=== PATIENT | male | born 1940 | race Caucasian/White ===

== ENCOUNTER → 2017-01-29 | Outpatient (CLI) | payer OTHER, MEDICARE ==
[~2017-01-29] MED LIST: ACETAMINOPHEN PO; ASPIRIN81 M2 PO; ASPIRIN81 MG PO; AZITHROMYCIN250 MG PO; CLOPIDOGREL75 MG PO; CORDARONE200 M1 PO; DIGOX0.125 MG PO; EFFEXOR75 M1 PO; FINASTERIDE5 MG PO; FLOMAX0.4 M1 PO; HYTRIN PO; IPRATROPIUM BR2.5 ML INH; LASIX20 MG PO; LEVAQUIN PO; LOSARTAN POTASS50 MG PO; METOPROLOL SUCC25 MG PO; METOPROLOL TAR25 MG PO; METRONIDAZOLE PO; NITROGLYCERIN0.4 MG SL; PANTOPRAZOLE SO40 MG PO; PLAVIX PO; PRAVASTATIN SOD20 MG PO; PREDNISONE PO; PROTONIX PO; PROTONIX40 MG/BLIS PO; SPIRIVA18 MCG INH; SYMBICORT INH; TOPROL XL PO; VENLAFAXINE HCL75 M2 PO; WELLBUTRIN PO; XARELTO20 MG PO; XOPENEX CO1.25 MG/0. IH; ZESTRIL2.5 MG PO; ZOLOFT PO
[2017-01-29 13:01] LABS: BLOOD UREA NITROGEN 25 mg/dL (9-23); CREATININE SERUM 1.2 mg/dL (0.6-1.4); GLOM FILT RATE Estimated ABOVE60 mL/min (>60)
== END | disposition home or self-care (01) ==
LOC: CLAB 12:16
PROVIDERS: Nurse Practitioner
DX: I71.4 Abdominal aortic aneurysm, without rupture (principal); Z98.890 Other specified postprocedural states
CPT/HCPCS: 36415; 82565; 84520

== ENCOUNTER → 2017-02-05 | Outpatient (CLI) | payer OTHER, MEDICARE ==
--- NOTE | ~2017-02-05 | CT14 ---
[facility] A Service of [facility] & [facility] RADIOLOGY TEXT RESULTS PATIENT: BERNARDINO ANDERS LOCATION: [facility] : 39 UNIT #: [id number] AGE: [address]: NIDIA ADAM APRN SEX: M ORDER DR: [id number] [facility] [address] [place], [place] [address] [id number] O MR#: [id number] [facility] #: [id number] NAME: BERNARDINO ANDERS : 1940 SEX: M STUDY DATE/TIME: 02/05/2017 10:54 UNIT: [facility] ROOM: STUDY DESCRIPTION: CT Angio Abdomen and Pelvis Attending Physician: Nidia Adam Aprn Referring Physician: Nidia Adam Aprn Ordering Physician: Nidia Adam Aprn Primary Care Physician: Anum Castro Aprn MEDICAL IMAGING REPORT This report is preliminary unless electronic signature is present EXAM CT angiogram of the abdomen and pelvis with and without contrast. INDICATION 76-year-old male with a history of aortic aneurysm, prior EVAR, followup. TECHNIQUE CT angiogram of the abdomen and pelvis was performed before and after the administration of IV contrast using a multiphase stent graft protocol. Coronal, sagittal, and 3-D reformatted images were obtained. This CT exam was performed with one or more of the following radiation dose reduction techniques: automatic exposure control, adjustment of mA and/or kV according to patient size, and iterative reconstruction. COMPARISON STUDIES Comparison with 07/29/2016. FINDINGS CT ANGIOGRAM: Prior EVAR. Stent graft widely patent. Stable very tiny endoleaks in the upper portion of the aneurysm sac. Aneurysm sac size has slightly decreased measuring about 3.3 x 4.6 cm in greatest dimension. Previously, it was about 3.4 x 5.0 cm. Stable appearance of the visceral arteries. ABDOMEN: Severe emphysema in the lung bases. There is some new nonspecific subcentimeter nodular densities in the anterior portion of the right lung base. Small hiatal hernia. Liver, gallbladder, and spleen unremarkable. Small cysts in the right kidney. The left kidney is unremarkable. The adrenal glands and pancreas are unremarkable. PELVIS: Extensive sigmoid diverticulosis. There is also diverticulosis throughout the rest of the colon but to a lesser extent. The appendix is STS. [facility] A Service of [facility] RADIOLOGY TEXT RESULTS PATIENT: BERNARDINO ANDERS LOCATION: [facility] : 39 UNIT #: [id number] AGE: [address]: NIDIA ADAM, [place] SEX: M ORDER DR: normal. Prostatomegaly. The bone windows are unremarkable. IMPRESSION 1. Stable tiny type 2 endoleaks in the upper portion of the aneurysm sac. 2. Overall the aneurysm sac size has slightly decreased. 3. Severe emphysema. 4. Scattered subcentimeter nodular densities in the anterior right lung base are new compared with the most recent study. These are nonspecific, however, given the patient's emphysema, these require followup. Follow up chest CT in 3 months is recommended to document stability or resolution. Dictated by... Javier Munoz M.D. THIS IS AN ELECTRONICALLY VERIFIED REPORT Javier Munoz M.D. at 02/05/2017 4:29 PM LETICIA/mary carmen TD: 02/05/2017 13:50 JOB #: [id number] MEDICAL IMAGING REPORT Page 1 of 1 COPY
== END | disposition home or self-care (01) ==
LOC: CCAT 10:11
DX: I71.4 Abdominal aortic aneurysm, without rupture (principal); J43.9 Emphysema, unspecified
CPT/HCPCS: 74174; Q9967

== ENCOUNTER → 2017-03-06 | Outpatient (CLI) | payer OTHER, MEDICARE ==
--- NOTE | ~2017-03-06 | CT57 ---
[facility] A Service Community [facility] RADIOLOGY TEXT RESULTS PATIENT: BERNARDINO ANDERS LOCATION: [facility] : 39 UNIT #: [id number] AGE: [address]: Mami Gastelum SEX: M ORDER DR: [id number] [facility] [address] [place], [place] [address] [id number] O MR#: [id number] Acc #: [id number] NAME: BERNARDINO ANDERS. : 1940 SEX: M STUDY DATE/TIME: 03/06/2017 10:28 UNIT: [facility] ROOM: STUDY DESCRIPTION: CT Chest Wo Cont Attending Physician: Mami Gastelum A.P.R.N. Referring Physician: Mami Gastelum A.P.R.N. Ordering Physician: Mami Gastelum A.P.R.N. Primary Care Physician: Anum Castro Aprn MEDICAL IMAGING REPORT This report is preliminary unless electronic signature is present EXAM CT of the chest without contrast. INDICATION Pulmonary aspergillosis, shortness of breath for years. Emphysema. TECHNIQUE CT scan of the chest was performed without contrast. Coronal and sagittal reformatted images were obtained. This CT exam was performed with one or more of the following radiation dose reduction techniques: automatic exposure control, adjustment of mA and/or kV according to patient size, and iterative reconstruction. COMPARISON STUDIES Comparison with 03/20/2015 FINDINGS There is stable scarring and bronchiectasis within the upper lobes. Emphysema. There is no suspicious pulmonary nodule. There is no pleural effusion. No lymphadenopathy. Coronary artery calcification. Tiny hiatal hernia. Limited imaging of the upper abdomen is unremarkable. Bone windows are unremarkable. IMPRESSION Emphysema. Stable bilateral upper lobe scarring and bronchiectasis, worse on the left. Dictated by... Javier Munoz M.D. [facility] A Service Community [facility] RADIOLOGY TEXT RESULTS PATIENT: BERNARDINO ANDERS LOCATION: [facility] : 39 UNIT #: [id number] AGE: [address]: Mami Gastelum SEX: M ORDER DR: THIS IS AN ELECTRONICALLY VERIFIED REPORT Javier Munoz M.D. at 03/07/2017 9:33 AM LETICIA/mary carmen TD: 03/06/2017 16:31 JOB #: [id number] MEDICAL IMAGING REPORT Page 1 of 1 COPY
== END | disposition home or self-care (01) ==
LOC: CCAT 10:04
DX: B44.1 Other pulmonary aspergillosis (principal); J43.9 Emphysema, unspecified; J47.9 Bronchiectasis, uncomplicated; J98.4 Other disorders of lung
CPT/HCPCS: 71250